=== PATIENT | male | born 1955 | race Two or more races ===

== ENCOUNTER 2022-03-28 06:55 | Day surgery (SDC) | payer OTHER ==
[~2022-03-28] VITALS: Ht 177.8 cm; Wt 62.1 kg
[~2022-03-28 06:55] MED LIST: ALEN70TA74 PO; AMLO-489 PO; ASPI1TAB20 PO; ATOR20TA50 PO; BUPR150T18 PO; FURO20TA3 PO; MELO1TAB73 PO; TRAZ50TA2 PO; TRIA75TA55 PO
[2022-03-28] MEDS ORDERED: IODIXANOL 320MG/ML 100ML BTL IV ONE (07:49)
[2022-03-28] MEDS ORDERED: HEPARIN IN NS 1000Units/500mL 1,500 ML ONE (07:49)
[2022-03-28] MEDS ORDERED: LIDOCAINE 2%HCL (LOCAL ANESTH.) INJ 10ml MDV ONE ×2 (07:49→07:55)
[2022-03-28] MEDS ORDERED: HEPARIN SODIUM (PORCINE) 5000 UNITS/ML 1ML VIAL ONE (07:53)
[2022-03-28] MEDS ORDERED: ANGIOMAX 250 MG VIAL IV ONE (07:53)
[2022-03-28] MEDS ORDERED: fentaNYL CITRATE 100 MCG/2 ML VL ONE (07:53)
[2022-03-28] MEDS ORDERED: MIDAZOLAM HCL 2MG/2ML 2ml VIAL (1mg/ml) ONE (07:54)
[2022-03-28] MEDS ORDERED: SODIUM CHL 0.9% 0 ML ONE (07:54)
[2022-03-28] MEDS ORDERED: ACETAMINOPHEN 500 MG TAB PO PRN (09:30)
== END 2022-03-28 12:15 | disposition home or self-care (01) ==
LOC: CATH 06:55
PROVIDERS: ATTEND Internal Medicine
DX: I73.9 Peripheral vascular disease, unspecified (principal); I87.2 Venous insufficiency (chronic) (peripheral); I70.0 Atherosclerosis of aorta; E29.1 Testicular hypofunction; J44.9 Chronic obstructive pulmonary disease, unspecified; F17.200 Nicotine dependence, unspecified, uncomplicated; Z90.49 Acquired absence of other specified parts of digestive tract; Z98.890 Other specified postprocedural states; Z79.899 Other long term (current) drug therapy; Z20.822 Contact with and (suspected) exposure to COVID-19
CPT/HCPCS: 37220; 93005; C1876; C1894; J1644; J2001; J2250; J3010; Q9967; U0003; 99152

== ENCOUNTER → 2023-02-07 | Day surgery (SDC) | payer OTHER ==
[~2023-02-07] VITALS: Ht 177.8 cm; Wt 77.1 kg
[~2023-02-07] MED LIST changes: -AMLO-489 PO; -ASPI1TAB20 PO; +DexAMETHasone SOD PHOS 10MG/1ML VIAL INJ ONE; +EPINEPHrine HCL 1 MG/1 ML AMP ONE; +GLYCOPYRROLATE 0.2 MG/ML 1ML VIAL ONE; +KETOROLAC TROMETH 30 MG/ML 1ML VIAL ONE; +LIDOCAINE 2% (LOCAL ANESTH.) PF 5ml SDV ONE; +ONDANSETRON HCL 4 MG/2 ML VIAL ONE; +PROPOFOL 10 MG/ML 20 ML IV ONE; +ceFAZolin 1GM/50ML 100 ML IV ONE
[2023-02-07 11:12] VITALS: BP 142/68
== END | disposition home or self-care (01) ==
LOC: SUR 08:23
PROVIDERS: ATTEND Orthopaedic Surgery
DX: S83.282A Other tear of lateral meniscus, current injury, left knee, initial encounter (principal); M22.42 Chondromalacia patellae, left knee; M79.4 Hypertrophy of (infrapatellar) fat pad; I10 Essential (primary) hypertension; F32.A Depression, unspecified; J44.9 Chronic obstructive pulmonary disease, unspecified; X58.XXXA Exposure to other specified factors, initial encounter; Y93.89 Activity, other specified; Y92.89 Other specified places as the place of occurrence of the external cause; Y99.8 Other external cause status; F17.210 Nicotine dependence, cigarettes, uncomplicated; Z98.890 Other specified postprocedural states; Z79.899 Other long term (current) drug therapy; Z20.822 Contact with and (suspected) exposure to COVID-19
CPT/HCPCS: 29881; J0171; J0690; J1100; J1885; J2001; J2405; J2704; U0003